=== PATIENT | male | born 1990 | race Hispanic/Latino ===

== ENCOUNTER 2019-01-18 16:11 | Emergency (ER) | payer OTHER ==
[2019-01-18] MEDS ORDERED: OCTYL 2-CYANOACRYLATE 1 EACH TP ONE (16:19)
[2019-01-18] MEDS ORDERED: TETANUS/DIPHTHERIA TOXOID [ADULT] 0.5 ML VIAL IM ONE (16:19)
== END 2019-01-18 17:18 | disposition home or self-care (01) ==
LOC: EDH 16:11
DX: S61.213A Laceration without foreign body of left middle finger without damage to nail, initial encounter (principal); E11.9 Type 2 diabetes mellitus without complications; W27.8XXA Contact with other nonpowered hand tool, initial encounter; Y93.89 Activity, other specified; Y92.89 Other specified places as the place of occurrence of the external cause; Y99.8 Other external cause status
CPT/HCPCS: 12001; 73140; 90471; 90714

== ENCOUNTER 2025-05-15 10:22 | Emergency (ER) | payer BC ==
[~2025-05-15] VITALS: Ht 167.6 cm; Wt 96.6 kg
--- NOTE | 2025-05-15 10:38 | NUR ---
BG 106
[2025-05-15 10:40] LABS: IMMATURE GRANULOCYTE ABSOLUTE 0.05 K/uL (0-1); NUCLEATED RED BLOOD CELLS 0.0 % (0.0-0.19); PLATELET COUNT (AUTO) 266 K/uL (130-400); RED BLOOD CELL COUNT(AUTO) 4.78 MIL/uL (4.50-6.20); RED CELL DISTRIBUTION WIDTH 13.2 % (11.0-15.5); WHITE BLOOD COUNT (AUTO) 12.8 K/uL (4.8-10.8)
--- NOTE | 2025-05-15 10:55 | ERN ---
General Chief Complaint: Hypoglycemia Stated Complaint: HYPOGLYCEMIA Time Seen by MD: 10:24 History of Present Illness Initial Comments Patient is a 34-year-old male with a past medical history of type 2 diabetes mellitus came in because of a hypoglycemic episode. Per the EMS, patient was in altered mental status and hypoglycemic reason why his called 911, she gave him 3 glucose tablets 4mg each which helped with the altered mental status and he was fully oriented x3 by the time EMS arrived. Patient's glucose was at 46 when the EMS checked him so they gave him 12.5 D5W and his glucose went up to 99. Per the patient's he is involved in a drug research study at [facility], where he gets a drug similar to Mounjaro(he does not exactly remember the drugs name) at a dose of 7.5 mg every Sunday since around November. He says he has been having hypoglycemic episodes since starting research drug. He says they usually occur at night on Tuesdays when he usually takes the drug but his gives him glucose tablets or chocolates which helped bring his blood sugars back in range. This is the 1st time he had altered mental status. Patient is usually on both long-acting and short-acting insulin, he takes 30 units of long-acting at night and he takes 65 units of short-acting the whole day, divided into 30 in the morning, 15 at lunch and 20 at dinner. His remaining review of systems is negative and his physical exam is normal. Timing/Duration: 4-6 hours Severity: mild Associated Symptoms: denies symptoms Allergies: Coded Allergies: No Known Allergies (Unverified Allergy, Unknown, 01/18/19) Past Medical History Past Medical History: Diabetes-Type II Past Surgical History: None Review of Systems: was completed, & the rest were negative. Physical Exam General Appearance: (+) no apparent distress Orientation: (+) alert, (+) oriented x 3 Head/Face Trauma: No Respiratory: (+) chest non-tender, (+) lungs clear, (+) well ventilated Heart: (+) regular, (+) no gallop, (+) tachycardia Vascular: (+) no edema Gastrointestinal: (+) soft, (+) non-tender, (+) no organomegaly, (+) bowel sound present Neurologic/Psychiatric: (+) normal speech, (+) no motor defecits, (+) no sensory deficits Results Laboratory and Microbiology Lab and Micro Result Laboratory Tests Test 05/15/25 10:34 05/15/25 10:37 White Blood Count 12.8 K/uL (4.8-10.8) H Red Blood Count 4.78 MIL/uL (4.50-6.20) Hemoglobin 14.3 g/dL (14.0-18.0) Hematocrit 42.6 % (42-54) Mean Corpuscular Volume 89.1 fL (79-99) Mean Corpuscular Hemoglobin 29.9 pg (27.0-33.0) Mean Corpuscular Hemoglobin Concent 33.6 g/dL (32.0-36.0) Red Cell Distribution Width 13.2 % (11.0-15.5) Platelet Count 266 K/uL (130-400) Mean Platelet Volume 10.6 fL (7.5-10.5) H Immature Granulocyte % (Auto) 0.4 % (0-1) Neutrophils (%) (Auto) 84.6 % (40.0-77.0) H Lymphocytes (%) (Auto) 10.2 % (21.0-51.0) L Monocytes (%) (Auto) 4.0 % (3.0-13.0) Eosinophils (%) (Auto) 0.3 % (0.0-8.0) Basophils (%) (Auto) 0.5 % (0.0-5.0) Neutrophils # (Auto) 10.8 K/uL (1.8-7.7) H Lymphocytes # (Auto) 1.3 K/uL (1.0-4.8) Monocytes # (Auto) 0.5 K/uL (0.1-1.0) Eosinophils # (Auto) 0.04 K/uL (0.00-0.70) Basophils # (Auto) 0.07 K/uL (0.00-0.20) Absolute Immature Granulocyte (auto 0.05 K/uL (0-1) Nucleated Red Blood Cells 0.0 % (0.0-0.19) Sodium Level 138 mmol/L (136-145) Potassium Level 4.1 mmol/L (3.5-5.1) Chloride Level 101 mmol/L (101-111) Carbon Dioxide Level 27 mmol/L (21-32) Blood Urea Nitrogen 11 mg/dL (7-18) Creatinine 0.9 mg/dL (0.5-1.3) Glomerular Filtration Rate Calc 116 mL/min (>90) Random Glucose 99 mg/dL (70-105) Total Calcium 9.3 mg/dL (8.5-10.1) Whole Blood Glucose 106 MG/DL (70-110) Labs Reviewed?: Yes MDM MDM: Differential diagnosis:hypoglycemia, medication side effect, Rationale: Tests considered and ordered secondary to shared decision making include: Previous outside records reviewed: Old ER visits. Risk of complication and/or morbidity or mortality of patient management: None Medications-Per medication reconciliation Need for hospitalization: Patient does not meet criteria for hospitalization. Need for emergency major/minor surgery: No Patient is a 34 y/o male here for evaluation of hypoglycemia. Per patient he is taking medication which lowers his blood glucose. Patient was evaluated and initial glucose was 106 repeat after greater than one hour was 101. Patient will be discharged in stable condition. ED Course Orders Procedure Category Date Status Time Cbc With Differential LAB 05/15/25 Complete 10:28 Basic Metabolic Panel LAB 05/15/25 Complete 10:28 Bedside Glucose CPOE 05/15/25 Transmitted Fingerstick 11:33 Vital Signs Date Time Temp Pulse Resp B/P (MAP) Pulse Ox O2 Delivery O2 Flow Rate FiO2 05/15/25 10:45 99.5 108 14 142/70 99 Room Air* 0 21 05/15/25 10:23 99.5 112 20 130/79 96 0 Problem List Problem Lists: (1) Hypoglycemia associated with type 2 diabetes mellitus DX & DISP Disposition: Discharge Departure Impression: Primary Impression: Hypoglycemia associated with type 2 diabetes mellitus Condition: Stable Additional Instructions: FOLLOW-UP WITH PRIMARY CARE PROVIDER IN 1 TO 2 DAYS. TAKE MEDICATIONS DIRECTED HERE IN THE EMERGENCY ROOM. OKAY TO CONTINUE HOME MEDICATIONS UNLESS OTHERWISE DISCUSSED DURING YOUR VISIT IN THE EMERGENCY ROOM TODAY. RETURN TO YOUR NEAREST EMERGENCY ROOM IF SYMPTOMS WORSEN OR IF THERE IS NO IMPROVEMENT. CALL 911 IF YOU NEED IMMEDIATE ASSISTANCE. TAKE TYLENOL [id number] NEEDED AND IF NO CONTRAINDICATIONS ARE PRESENT. INCREASE ORAL HYDRATION. A WOUND CULTURE OR URINE CULTURE WAS ORDERED HERE IN THE EMERGENCY ROOM DEPARTMENT PLEASE FOLLOW-UP WITH PRIMARY CARE PROVIDER AND ADVISE THEM TO GET REPORTS FROM OUR FACILITY. IF YOU HAD ANY DANYELL WRAP/SPLINTS THAT WERE APPLIED HERE, PLEASE DO NOT REMOVE THEM UNTIL YOU SEE YOUR PRIMARY CARE OR SPECIALTY. Referrals: SELF,REFERRAL (PCP) RENATA AGUDELO MD Time of Disposition: 12:22 JEFFERY GOLDSMITH MD May 15, 2025 10:55 KRISTIE BORREGO MD May 15, 2025 12:23
[2025-05-15 11:07] LABS: CREATININE 0.9 mg/dL (0.5-1.3); GLOMERULAR FILTR. RATE CALC 116.0 mL/min (>90); GLUCOSE,RANDOM 99.0 mg/dL (70-105); SODIUM SERUM 138.0 mmol/L (136-145); UREA NITROGEN, BLOOD 11.0 mg/dL (7-18)
--- NOTE | 2025-05-15 12:17 | NUR ---
REPEAT BG 101
[2025-05-15 13:02] VITALS: BP 120/72; PULSE 109; RESP 14; TEMP 99.5; O2SAT 99
== END 2025-05-15 13:30 | disposition home or self-care (01) ==
LOC: EDH 10:22
DX: E11.649 Type 2 diabetes mellitus with hypoglycemia without coma (principal); R41.82 Altered mental status, unspecified
CPT/HCPCS: 36415; 80048; 82948; 85025; 99283